=== PATIENT | male | born 1965 | race Caucasian/White ===

== ENCOUNTER 2021-07-12 12:27 | Inpatient (IN) ==
[2021-07-12 14:15] LABS: ABS Lymphocytes 0.6 10^3/ul (1.0-4.8); ABS Monocytes 0.5 10^3/ul (0-0.8); ABS Neutrophils 3.5 10^3/ul (1.5-7.7); Eosinophil % 0.3 %; Hematocrit 39 % (42-52); Hemoglobin 13.7 g/dL (14.0-18.0); Lymphocyte % 13.1 %; Mean Corpuscular HGB Conc 35 g/dL (31-36); Mean Corpuscular Hemoglobin 32 pg (27-31); Mean Corpuscular Volume 90 fL (80-94); Mean Platelet Volume 7.3 fL (7.4-10.4); Platelet Count 239 10^3/uL (150-450); Red Blood Count 4.36 10^6 /uL (4.18-5.48); Red Cell Distribution Width 14 % (10-15); White Blood Count 4.7 10^3/uL (3.5-10.8)
[2021-07-12 14:25] LABS: Albumin 3.9 g/dL (3.2-5.2); Calcium 8.8 mg/dL (8.6-10.3); Potassium 3.9 mmol/L (3.5-5.0); Total Bilirubin 0.6 mg/dL (0.2-1.0)
[2021-07-12 14:31] LABS: Albumin/Globulin Ratio 1.1 (1-3); Globulin 3.7 g/dL (2-4); Total Protein 7.6 g/dL (6.4-8.9); eGFR CKD-EPI 88.4 (>60)
[2021-07-12] MEDS ORDERED: Dexamethasone IV 4 MG/ML VIAL 1 ml VIAL IV SLOW PU ONE (17:59)
[2021-07-12 18:25] LABS: Venous Bicarbonate HCO3 26.1 mmol/L (24-28)
[2021-07-12 18:40] LABS: Activated Partial Thrombo Time 28.6 seconds (26.0-38.0); INR 1.29 (0.86-1.15)
[2021-07-12 18:46] LABS: C Reactive Protein 174.2 mg/L (<8.01)
[2021-07-12 18:47] LABS: Troponin I 0.01 ng/mL (<0.03)
[2021-07-12 19:27] LABS: Ferritin 817.1 ng/mL (24-336)
[2021-07-12] MEDS ORDERED: Iohexol 350 (CONTRAST) 500 ML MDV IV ONE (20:35)
[2021-07-12] MEDS ORDERED: Remdesivir 100 mg Vial 200 MG in NS 0.9% 250 ml 210 ML IV ONE (21:37)
[2021-07-12 22:33] LABS: Rapid COVID-19 Molecular Detected (Undetected)
[2021-07-12 22:41] LABS: Influenza A Molecular Negative (Negative); Influenza B Molecular Negative (Negative)
[2021-07-13] MEDS: Enoxaparin 80 MG/0.8 ML SYR SUBCUT SCH ×3 (00:12→22:25)
[2021-07-13 06:20] LABS: ABS Lymphocytes 0.5 10^3/ul (1.0-4.8); ABS Monocytes 0.6 10^3/ul (0-0.8); ABS Neutrophils 3.1 10^3/ul (1.5-7.7); Hematocrit 39 % (42-52); Hemoglobin 13.4 g/dL (14.0-18.0); Lymphocyte % 11.3 %; Mean Corpuscular HGB Conc 34 g/dL (31-36); Mean Corpuscular Hemoglobin 31 pg (27-31); Mean Corpuscular Volume 90 fL (80-94); Platelet Count 268 10^3/uL (150-450); Red Blood Count 4.35 10^6 /uL (4.18-5.48); Red Cell Distribution Width 13 % (10-15); White Blood Count 4.2 10^3/uL (3.5-10.8)
[2021-07-13 06:40] LABS: Albumin 3.8 g/dL (3.2-5.2); Calcium 8.7 mg/dL (8.6-10.3); Total Bilirubin 0.5 mg/dL (0.2-1.0)
[2021-07-13 06:46] LABS: Globulin 3.8 g/dL (2-4); Total Protein 7.6 g/dL (6.4-8.9); eGFR CKD-EPI 88.4 (>60)
[2021-07-13 08:19] LABS: INR 1.25 (0.86-1.15)
[2021-07-13 12:01] LABS: Urine Appearance Clear; Urine Bilirubin Negative (Negative); Urine Blood Negative (Negative); Urine Color Yellow; Urine Glucose 2+(150 mg/dL) (Negative); Urine Ketones Trace (Negative); Urine Nitrite Negative (Negative); Urine Protein 2+(100 mg/dL) (Negative); Urine Specific Gravity 1.026 (1.002-1.030); Urine Urobilinogen Negative (Negative)
[2021-07-13 12:07] LABS: Urine Bacteria Absent (Absent); Urine Red Blood Cell Trace(0-2/hpf) (Absent); Urine White Blood Cell Trace(0-5/hpf) (Absent)
[2021-07-13] MEDS ORDERED: Remdesivir 100 mg Vial 100 MG in NS 0.9% 250 ml 230 ML IV SCH (21:00)
[2021-07-14] MEDS: Enoxaparin 80 MG/0.8 ML SYR SUBCUT SCH (08:26)
[2021-07-14 11:33] VITALS: BP 128/76
== END 2021-07-14 16:00 | disposition home or self-care (01) | DRG 720 ==
LOC: ED 12:27 → SUATTDRO 21:28 → EDHOLD 22:06 → MED 07-13 01:05
PROVIDERS: ADMIT Student in an Organized Health Care Education/Training Program; ATTEND Internal Medicine